=== PATIENT | male | born 1980 | race Caucasian/White ===

== ENCOUNTER 2017-04-26 11:04 | Emergency (ER) | payer OTHER ==
[~2017-04-26] VITALS: Ht 182.9 cm; Wt 106.0 kg
[2017-04-26 11:09] VITALS: TEMP 36.4; Ht 182.9 cm; Wt 106.0 kg
[2017-04-26] MEDS ORDERED: INSPMPNVLG (11:44)
[2017-04-26] MEDS ORDERED: CITA40TA4 PO (11:44)
[2017-04-26] MEDS ORDERED: BUSP15TA70 PO (11:44)
--- NOTE | 2017-04-26 12:30 | DIAGNOSTIC IMAGING REPORT ---
C-SPINE ROUTINE 4 OR 5 VIEWS CLINICAL HISTORY: Neck pain status post trauma COMPARISON STUDY: No previous studies for comparison. FINDINGS: There is straightening of the normal cervical lordosis. The prevertebral soft tissues are normal. No fractures or subluxations are visualized. There are mild multilevel degenerative changes. IMPRESSION: No fractures or subluxations identified. Electronically signed by: Philippe Brito M.D. 04/26/2017 12:29 PM Dictated Date/Time: 04/26/2017 12:28 PM
--- NOTE | 2017-04-26 12:30 | DIAGNOSTIC IMAGING REPORT ---
THORACIC SPINE 3 VIEWS ROUTINE HISTORY: Trauma. Pain. same COMPARISON: None. FINDINGS: There is no fracture. Mild scoliosis. Mild degenerative disc change. IMPRESSION: Mild degenerative change. No acute process. The above report was generated using voice recognition software. It may contain grammatical, syntax or spelling errors. Electronically signed by: Ludwin Allen M.D. 04/26/2017 12:29 PM Dictated Date/Time: 04/26/2017 12:28 PM
[2017-04-26 12:44] VITALS: BP 149/89; PULSE 71; O2SAT 95
[2017-04-26] MEDS ORDERED: KETO10TA PO (12:44)
--- NOTE | 2017-04-26 14:17 | EMERGENCY ROOM VISIT NOTE ---
ED Visit Note First contact with patient: 11:13 Chief Complaint: Fell at work yesterday and now my neck and back hurts History of Present Illness: Mr. Carias is a 37-year-old white male who ambulates into the ED complaining of cervical and thoracic back pain. Patient reports he was at work last evening, tripped over materials at work and fell onto his back. He reports at the time of the fall he was not lightheaded or dizzy. He does report he did strike his head during the fall but did not have a loss of consciousness and since the fall he has had no signs of head injury including headache, dizziness, lightheadedness, abnormal neurological symptoms, nausea/vomiting. Currently he is placing his neck pain over the bilateral mid trapezius muscles lateral to the C7 area. He describes his pain as an achy sensation. He rates his discomfort 6/10. His pain is nonradiating. His pain worsens with flexion and extension of the neck and minimally with palpation. He has not identified any alleviating factors related to the pain. He reports he has been taken ibuprofen and Aleve without relief of his discomfort. Currently he is complaining of bilateral thoracic pain with prominence on the left just inferior to the scapula in the paraspinous muscles. He describes this pain as a sharp sensation. He rates his discomfort 6/10. The pain is nonradiating. His pain worsens with palpation. He has not identified any alleviating factors related to the pain. He has no relief from his medications as previously noted. He denies any associated symptoms including previous significant cervical or thoracic pain, chest pain, shortness of breath, abdominal pain, nausea, vomiting , extremity weakness/numbness/tingling, shoulder, elbow, wrist and hand pain. Review of Systems: As noted above in history of present illness. At least body systems were reviewed and found to be negative as noted above. Past Medical History: Diabetes. Current Medications: Insulin, citalopram and BuSpar. Allergies to Medications: Metformin. Social History: Patient is currently employed; he feels safe in his home environment; he denies tobacco use. Physical Examination: Vital Signs: Date Time Temp Pulse Resp B/P (MAP) Pulse Ox O2 Delivery O2 Flow Rate FiO2 04/26/17 12:44 71 18 149/89 95 Room Air 04/26/17 11:09 36.4 63 18 160/97 97 Room Air GENERAL: 37-year-old female in mild to moderate distress due to pain, nontoxic- appearing, afebrile and hemodynamically stable. NEUROLOGICAL: Awake, alert and oriented to person, place and time. Answering questions appropriately and following commands. Normal gait. Good hand eye coordination. No focal or motor sensory deficits. SKIN: Warm, dry and pink. No soft tissue trauma noted. HEENT: Atraumatic and normocephalic. Skull: No bony deformity, tenderness, swelling or ecchymosis. No raccoon's eyes or quesada signs. No facial trauma. PERRLA. No malocclusion. No intraoral trauma. Airway pain. Speech normal and clear. BACK: No tenderness over the bony cervical, thoracic and lumbar spine. No bony deformity, bony crepitus, swelling or ecchymosis. Mild tenderness in the bilateral upper and mid trapezius area and the patient's pain without obvious muscle spasm. No CVA tenderness. Full range of motion of the cervical and thoracic spine. THORAX: Lungs sounds are clear to auscultation and equal bilaterally with symmetrical chest wall. No crepitus, tenderness, subcutaneous air or deformities noted. UPPER EXTREMITIES: No gross bony deformity. No tenderness over the shoulders, elbows, forearms and wrist. 5/5 muscle strength in all movements of the shoulders, elbows, forearm and wrists. 2+ bicipital, tricipital and brachial radialis deep tendon reflexes. Distal pulses and light sensation is intact. ED Course: Patient is assessed as noted above. Patient's medication list was reviewed. Cervical Spine X-Rays: Were read by myself and the radiologist showing no acute fractures or subluxations. Mild multiple level degenerative changes were made by the radiologist. Thoracic Spine X-Rays: Were read by myself and the radiologist showing no acute fractures or subluxations. Multiple degenerative disc changes. Mild scoliosis. Patient was educated about today's findings and instructed on his treatment plan ; he verbalized understanding and agreement with this plan. Clinical Impression: Fall. Cervical and thoracic spinous back pain. Work related injury. Disposition: Patient discharged home in stable condition; prior to departure he was reassessed and subjectively reported he was feeling slightly better and rated his discomfort 5/10. Plan: Patient was prescribed Toradol and encouraged to alternate 10 mg of Toradol and 650 mg of acetaminophen every 3 hours as needed for persistent pain. Patient was encouraged use ice on areas of pain 5-6 times a day for 20-30 minutes. Patient was encouraged to follow-up with Work[employer] Compensation for recheck if no better in 2-4 days. Patient was signed off one day of work. Patient was encouraged return ED for worsening/uncontrolled pain, upper extremity weakness/numbness/tingling or any new/concerning symptoms.
== END 2017-04-26 12:47 | disposition home or self-care (01) ==
LOC: C.EDB 11:08 → C.EDD 12:47
DX: M54.2 Cervicalgia (principal); M54.6 Pain in thoracic spine; W01.10XA Fall on same level from slipping, tripping and stumbling with subsequent striking against unspecified object, initial encounter; Y93.89 Activity, other specified; Y92.89 Other specified places as the place of occurrence of the external cause; Y99.0 Civilian activity done for income or pay; E11.9 Type 2 diabetes mellitus without complications; Z79.4 Long term (current) use of insulin; Z88.8 Allergy status to other drugs, medicaments and biological substances